=== PATIENT | female | born 1985 | race Caucasian/White ===

== ENCOUNTER 2016-05-09 15:48 | Emergency (ER) ==
[2016-05-09 16:00] VITALS: BP 128/84
[2016-05-09 16:19] LABS: MANUAL DIFF NEEDED? NO
[2016-05-09 16:21] LABS: URINE CULTURE NEEDED? NO; URINE MICRO REVIEW NEEDED? NO; URINE SOURCE CLEAN CATCH
[2016-05-09 16:28] LABS: BASO% 0.4 % (0.0-0.8); EOS# 0.21 X1000 (0.0-0.7); EOS% 2.2 % (0.0-10.0); HEMATOCRIT 38.2 % (37.0-47.0); LYMPH# 2.84 X1000 (1.2-3.4); LYMPH% 29.4 % (20.5-51.1); MCH 30.4 PG (27-31); MCV 89.3 FL (81-99); MONO# 1.03 X1000 (0.11-0.59); MONO% 10.7 % (1.7-9.3); MPV 8.9 FL (7.4-10.4); NEUT% 57.3 % (42.2-75.2); PLT 381 X1000 (130-400); RBC 4.28 XMIL (4.2-5.4)
[2016-05-09 16:32] LABS: BILIRUBIN URINE NEGATIVE (NEGATIVE); BLOOD URINE NEGATIVE (NEGATIVE); COLOR YELLOW; GLUCOSE URINE NEGATIVE (NEGATIVE); LEUKOCYTES URINE NEGATIVE (NEGATIVE); NITRITE URINE NEGATIVE (NEGATIVE); PH URINE 5.5; PROTEIN URINE TRACE mg/dL (NEGATIVE); SP GRAVITY URINE 1.033; TURBIDITY URINE CLEAR (CLEAR); UROBILINOGEN URINE 4 mg/dL (NORMAL)
[2016-05-09 16:33] LABS: UR EPITHELIAL CELLS <10 /HPF (<10); URINE BACTERIA NEGATIVE /HPF; URINE RBC <10 /HPF (<10); URINE WBC <10 /HPF (<10)
[2016-05-09 16:44] LABS: INR 0.94; PROTIME 9.6 Seconds (9.2-11.7); PTT 24.7 Seconds (22.0-36.0)
[2016-05-09 16:51] LABS: AGAP 9; ALBUMIN 3.8 g/dL (3.5-5.0); ALKALINE PHOSPHATASE 35 U/L (32-104); BUN 11 mg/dL (8-22); CALCIUM 8.6 mg/dL (8.8-10.2); CHLORIDE 102 mmol/L (98-107); COSMO 273; GOT 39 U/L (10-30); GPT 76 U/L (10-36); MAGNESIUM 2.1 mg/dL (1.5-2.7); POTASSIUM 3.1 mmol/L (3.5-5.1); SODIUM 137 mmol/L (136-145); TCO2 26 mmol/L (25-35); TOTAL BILIRUBIN 0.16 mg/dL (0.20-1.00); TOTAL PROTEIN 6.7 g/dL (6.3-8.3)
[2016-05-09 16:52] LABS: CK PROFILE 181 U/L (24-173)
[2016-05-09 16:52] LABS: UR AMPHETAMINES QUAL PRESUMPTIVE POSITIVE (NONE DETECT); UR BARBITUATES QUAL NONE DETECTED (NONE DETECT); UR BENZODIAZEPIN QUAL PRESUMPTIVE POSITIVE (NONE DETECT); UR CANNABINOIDS QUAL PRESUMPTIVE POSITIVE (NONE DETECT); UR COCAINE QUAL NONE DETECTED (NONE DETECT); UR METHADONE QUAL NONE DETECTED (NONE DETECT); UR OPIATES QUAL NONE DETECTED (NONE DETECT); UR OXYCODONE QUAL NONE DETECTED (NONE DETECT); UR PCP QUAL NONE DETECTED (NONE DETECT)
[2016-05-09 17:10] LABS: CK INDEX 1.9 (0.0-2.5); CK-MB 3.49 ng/mL (0.0-5.0)
--- NOTE | 2016-05-09 17:10 | PROVIDER DOCUMENTATION ---
HPI-Chest Pain - General Chief Complaint: Chest Pain Stated Complaint: CP Time Seen by Provider: 05/09/16 17:04 Source: patient Allergies/Adverse Reactions: Patient Allergies Allergy/AdvReac Type Severity Reaction Status Date / Time meloxicam [From Mobic] AdvReac NAUSEA/VOMI Verified 05/09/16 17:01 TING tramadol AdvReac NAUSEA/VOMI Verified 05/09/16 17:01 TING Home Medications: Home Medication List Medication Instructions Recorded Confirmed Last Taken Type No Home Medications 05/09/16 05/09/16 Unknown History - History of Present Illness-CP Nature of Presenting Problem: 30 y/o WF c/o CP x 1 day. Pt states that it is in her R chest and radiates to her RUE. States SOB and worse with smoking cigarettes. States that pain got worse after lifting a basket of laundry. Worse with moving RUE. Pain is 10/10 , sharp in nature. Review of Systems - Adult - REVIEW OF SYSTEMS - ADULT Constitutional: reports: no symptoms reported. denies: chills, fever Eyes: reports: no symptoms reported. denies: blurred vision, double vision Ears, Nose, Mouth & Throat: reports: no symptoms reported. denies: ear pain, nose pain Cardiovascular: reports: see HPI, chest pain. denies: palpitations Respiratory: reports: see HPI, shortness of breath. denies: cough Gastrointestinal: reports: no symptoms reported. denies: abdominal pain, nausea , vomiting Genitourinary: reports: no symptoms reported. denies: dysuria, frequency Musculoskeletal: reports: no symptoms reported. denies: joint pain, joint swelling Integumentary: reports: no symptoms reported. denies: nail changes, rash Neurological: reports: no symptoms reported. denies: numbness, paresthesia Psychiatric: reports: no symptoms reported Endocrine: reports: no symptoms reported. denies: cold intolerance, heat intolerance Hematologic/Lymphatic: reports: no symptoms reported. denies: easy bruising, prolonged bleeding Allergic/Immunologic: reports: no symptoms reported All Other Systems: Reviewed and Negative Past History - Adult - PAST MEDICAL HISTORY-ADULT Review of Records: reports: Nursing Assessment Review, Medications Reviewed Major Childhood Illnesses: reports: denies history Cardiovascular: reports: denies history Respiratory: reports: denies history Gastrointestinal: reports: denies history Obstetrical/Gynecological: reports: endometriosis LMP: 04/20/16 Genitourinary: reports: other (endometriosis) Musculoskeletal: reports: chronic pain (back) Neurological: reports: denies history Psychiatric: reports: denies history Endocrine/Immune: reports: denies history Other Conditions: reports: denies history - PRIOR SURGERIES/PROCEDURES Surgical/Procedure History: reports: other (left ovary and fallopian tube removed) - IMMUNIZATION STATUS Childhood Immunizations: See Nurse Assessment Flu Vaccine: See Nurse Assessment - FAMILY HISTORY Family History: reviewed, not pertinent - SOCIAL HISTORY Smoking: cigarettes, greater than 1 pack/day Provider spent 3-5 mins advising pt. on dangers of tobacco.: Discussed manners to quit use, and f/u contacts for add'l counseling. Substance Use: none/never Alcohol Use Frequency: never Physical Exam-General - PHYSICAL EXAM-ADULT Initial Vital Signs Reviewed: Yes - CONSTITUTIONAL General Appearance: alert, mild distress - EYES Eyes: pink conjunctivae - HEAD, EARS, NOSE, MOUTH & THROAT HENMT: normocephalic/atraumatic, moist mucous membranes, dental decay - NECK Neck: supple, normal inspection - RESPIRATORY Respiratory: lungs clear, normal breath sounds, no accessory muscle use, pain on inspiration. negative: chest non-tender (TTP R anterior and axillary aspect of chest wall), crackles, rales, rhonchi, stridor, wheezing - CARDIOVASCULAR Cardiovascular: regular rate, rhythm. negative: bradycardia, tachycardia - GASTROINTESTINAL (ABDOMEN) Abdominal Exam: normal bowel sounds - MUSCULOSKELETAL Back Exam: normal inspection Extremity: normal gait, normal inspection - SKIN Integumentary: normal color, normal turgor, warm/dry - NEUROLOGIC Neurologic: negative: aphasia - PSYCHIATRIC Psych/Mental Status: normal mood/affect, normal thought content, normal thought process, oriented x 3 Progress - PLAN OF CARE/RESULTS Progress/Plan/Lab Results: Laboratory Tests 05/09/16 05/09/16 05/09/16 16:05 16:05 16:05 WBC 9.67 RBC 4.28 Hgb 13.0 Hct 38.2 MCV 89.3 MCH 30.4 MCHC 34.0 RDW Std Deviation 12.9 Plt Count 381 MPV 8.9 Immature Gran % (Auto) 0.0 Neut % (Auto) 57.3 Lymph % (Auto) 29.4 Kidder % (Auto) 10.7 H Eos % (Auto) 2.2 Baso % (Auto) 0.4 Immature Gran # (Auto) 0.00 Neut # (Auto) 5.55 Lymph # (Auto) 2.84 Kidder # (Auto) 1.03 H Eos # (Auto) 0.21 Baso # (Auto) 0.04 PT INR PTT (Actin FS) D-Dimer 0.62 H Sodium 137 Potassium 3.1 L Chloride 102 Carbon Dioxide 26 Anion Gap 9 BUN 11 Creatinine 0.8 Estimated GFR/1.73 m2 > 60 BUN/Creatinine Ratio 14 Glucose 93 Calculated Osmolality 273 Calcium 8.6 L Magnesium 2.1 Total Bilirubin 0.16 L AST 39 H ALT 76 H Alkaline Phosphatase 35 Creatine Kinase 181 H Creatine Kinase Index 1.9 CK-MB (CK-2) 3.49 Troponin T [id number] Pept Total Protein 6.7 Albumin 3.8 Globulin 2.9 Albumin/Globulin Ratio 1.3 Urine Source Urine Color Urine Turbidity Urine pH Ur Specific [place] Urine Protein Ur Glucose (Stick) Ur Ketones (Stick) Urine Blood Urine Nitrite Urine Bilirubin Urobilinogen Dipstick Urine Leukocytes Urine WBC (Auto) Urine RBC (Auto) U Epithel Cells (Auto) Urine Bacteria (Auto) Urine Opiates Screen Ur Oxycodone Screen Ur Methadone, Qual Ur Barbiturates Screen Ur Phencyclidine Scrn Ur Amphetamines Screen U Benzodiazepines Scrn Urine Cocaine Screen U Cannabinoids Screen 05/09/16 05/09/16 05/09/16 16:05 16:05 16:05 WBC RBC Hgb Hct MCV MCH MCHC RDW Std Deviation Plt Count MPV Immature Gran % (Auto) Neut % (Auto) Lymph % (Auto) Kid[place] % (Auto) Eos % (Auto) Baso % (Auto) Immature Gran # (Auto) Neut # (Auto) Lymph # (Auto) Kidder # (Auto) Eos # (Auto) Baso # (Auto) PT 9.6 INR 0.94 PTT (Actin FS) 24.7 D-Dimer Sodium Potassium Chloride Carbon Dioxide Anion Gap BUN Creatinine Estimated GFR/1.73 m2 BUN/Creatinine Ratio Glucose Calculated Osmolality Calcium Magnesium Total Bilirubin AST ALT Alkaline Phosphatase Creatine Kinase Creatine Kinase Index CK-MB (CK-2) Troponin T < 0.010 [id number] Pept 24 Total Protein Albumin Globulin Albumin/Globulin Ratio Urine Source Urine Color Urine Turbidity Urine pH Ur Specific [place] Urine Protein Ur Glucose (Stick) Ur Ketones (Stick) Urine Blood Urine Nitrite Urine Bilirubin Urobilinogen Dipstick Urine Leukocytes Urine WBC (Auto) Urine RBC (Auto) U Epithel Cells (Auto) Urine Bacteria (Auto) Urine Opiates Screen Ur Oxycodone Screen Ur Methadone, Qual Ur Barbiturates Screen Ur Phencyclidine Scrn Ur Amphetamines Screen U Benzodiazepines Scrn Urine Cocaine Screen U Cannabinoids Screen 05/09/16 05/09/16 16:11 16:11 WBC RBC Hgb Hct MCV MCH MCHC RDW Std Deviation Plt Count MPV Immature Gran % (Auto) Neut % (Auto) Lymph % (Auto) Kidder % (Auto) Eos % (Auto) Baso % (Auto) Immature Gran # (Auto) Neut # (Auto) Lymph # (Auto) Kidder # (Auto) Eos # (Auto) Baso # (Auto) PT INR PTT (Actin FS) D-Dimer Sodium Potassium Chloride Carbon Dioxide Anion Gap BUN Creatinine Estimated GFR/1.73 m2 BUN/Creatinine Ratio Glucose Calculated Osmolality Calcium Magnesium Total Bilirubin AST ALT Alkaline Phosphatase Creatine Kinase Creatine Kinase Index CK-MB (CK-2) Troponin T [id number]-Senviupcpzi Pept Total Protein Albumin Globulin Albumin/Globulin Ratio Urine Source CLEAN CATCH Urine Color YELLOW Urine Turbidity CLEAR Urine pH 5.5 Ur Specific [place] 1.033 Urine Protein TRACE A Ur Glucose (Stick) NEGATIVE Ur Ketones (Stick) NEGATIVE Urine Blood NEGATIVE Urine Nitrite NEGATIVE Urine Bilirubin NEGATIVE Urobilinogen Dipstick 4 A Urine Leukocytes NEGATIVE Urine WBC (Auto) <10 Urine RBC (Auto) <10 U Epithel Cells (Auto) <10 Urine Bacteria (Auto) NEGATIVE Urine Opiates Screen NONE DETECTED Ur Oxycodone Screen NONE DETECTED Ur Methadone, Qual NONE DETECTED Ur Barbiturates Screen NONE DETECTED Ur Phencyclidine Scrn NONE DETECTED Ur Amphetamines Screen PRESUMPTIVE POSITIVE A U Benzodiazepines Scrn PRESUMPTIVE POSITIVE A Urine Cocaine Screen NONE DETECTED U Cannabinoids Screen PRESUMPTIVE POSITIVE A Orders Category Date Time Status ED: Urine Bedside ORDERED Care 05/09/16 16:02 Active Saline Loc NOW Care 05/09/16 17:14 Active CHEST-2 VIEWS [RAD] Stat Exams 05/09/16 16:01 Completed CBC WITH ELECTRONIC DIFF [HEME] Stat Lab 05/09/16 16:05 Completed CK PROFILE [SP CHEM] Stat Lab 05/09/16 16:05 Completed COMPREHENSIVE METABOLIC PANEL [CHEM] Stat Lab 05/09/16 16:05 Completed D-DIMER [CHEM] Stat Lab 05/09/16 16:05 Completed MAGNESIUM [CHEM] Stat Lab 05/09/16 16:05 Completed PRO B-NATRIURETIC PEPTIDE Stat Lab 05/09/16 16:05 Completed PROTIME WITH INR [COAG] Stat Lab 05/09/16 16:05 Completed PTT [COAG] Stat Lab 05/09/16 16:05 Completed TROPONIN T Stat Lab 05/09/16 16:05 Completed UDS [URINE DRUG SCREEN] Stat Lab 05/09/16 16:11 Completed URINALYSIS W/POSS RFLX CULT [URINALYSIS] Stat Lab 05/09/16 16:11 Completed 0.9% Sodium Chloride Inj [Ns] 1,000 ml Med 05/09/16 17:14 Discontinued IV 999 mls/hr Vecuronium [Norcuron] Med 05/09/16 17:27 Discontinued 10 mg .ROUTE .STK-MED ONE Water, Sterile Inj [Sterile Water Inj] Med 05/09/16 17:28 Discontinued 10 ml .ROUTE .STK-MED ONE EKG [EKG] Stat Ther 05/09/16 16:01 Draft Vital Signs Temp Pulse Resp BP Pulse Ox 05/09/16 15:56 97.3 F L 98 H 18 128/84 100 meloxicam [From Mobic] Adverse Reaction (Verified 05/09/16 17:01) NAUSEA/VOMITING tramadol Adverse Reaction (Verified 05/09/16 17:01) NAUSEA/VOMITING No Home Medications 05/09/16 NICOTINE DEPENDENCE, CIGARETTES, UNCOMPLICATED (05/09/16) OTHER CHRONIC PAIN (05/09/16) DORSALGIA, UNSPECIFIED (05/09/16) PAIN IN RIGHT ARM (05/09/16) SHORTNESS OF BREATH (05/09/16) OTHER CHEST PAIN (05/09/16) ABNORMAL ELECTROCARDIOGRAM [ECG] [EKG] (05/09/16) TOBACCO ABUSE COUNSELING (05/09/16) I&O 05/10/16 05/11/16 05/12/16 06:59 06:59 06:59 Output Total 30 Balance -30 Laboratory 05/09/16 05/09/16 05/09/16 16:11 16:11 16:05 WBC RBC Hgb Hct MCV MCH MCHC RDW Std Deviation Plt Count MPV Immature Gran % (Auto) Neut % (Auto) Lymph % (Auto) Kidder % (Auto) Eos % (Auto) Baso % (Auto) Immature Gran # (Auto) Neut # (Auto) Lymph # (Auto) Kidder # (Auto) Eos # (Auto) Baso # (Auto) PT INR PTT (Actin FS) D-Dimer Sodium Potassium Chloride Carbon Dioxide Anion Gap BUN Creatinine Estimated GFR/1.73 m2 BUN/Creatinine Ratio Glucose Calculated Osmolality Calcium Magnesium Total Bilirubin AST ALT Alkaline Phosphatase Creatine Kinase Creatine Kinase Index CK-MB (CK-2) Troponin T < 0.010 Rds-Q-Utkhbtsnxzd Pept Total Protein Albumin Globulin Albumin/Globulin Ratio Urine Source CLEAN CATCH Urine Color YELLOW Urine Turbidity CLEAR Urine pH 5.5 Ur Specific [place] 1.033 Urine Protein TRACE A Ur Glucose (Stick) NEGATIVE Ur Ketones (Stick) NEGATIVE Urine Blood NEGATIVE Urine Nitrite NEGATIVE Urine Bilirubin NEGATIVE Urobilinogen Dipstick 4 A Urine Leukocytes NEGATIVE Urine WBC (Auto) <10 Urine RBC (Auto) <10 U Epithel Cells (Auto) <10 Urine Bacteria (Auto) NEGATIVE Urine Opiates Screen NONE DETECTED Ur Oxycodone Screen NONE DETECTED Ur Methadone, Qual NONE DETECTED Ur Barbiturates Screen NONE DETECTED Ur Phencyclidine Scrn NONE DETECTED Ur Amphetamines Screen PRESUMPTIVE POSITIVE A U Benzodiazepines Scrn PRESUMPTIVE POSITIVE A Urine Cocaine Screen NONE DETECTED U Cannabinoids Screen PRESUMPTIVE POSITIVE A 05/09/16 05/09/16 05/09/16 16:05 16:05 16:05 WBC RBC Hgb Hct MCV MCH MCHC RDW Std Deviation Plt Count MPV Immature Gran % (Auto) Neut % (Auto) Lymph % (Auto) Kidder % (Auto) Eos % (Auto) Baso % (Auto) Immature Gran # (Auto) Neut # (Auto) Lymph # (Auto) [place] # (Auto) Eos # (Auto) Baso # (Auto) PT 9.6 INR 0.94 PTT (Actin FS) 24.7 D-Dimer 0.62 H Sodium Potassium Chloride Carbon Dioxide Anion Gap BUN Creatinine Estimated GFR/1.73 m2 BUN/Creatinine Ratio Glucose Calculated Osmolality Calcium Magnesium Total Bilirubin AST ALT Alkaline Phosphatase Creatine Kinase Creatine Kinase Index CK-MB (CK-2) Troponin T [id number]-Tafoxwgkynw Pept 24 Total Protein Albumin Globulin Albumin/Globulin Ratio Urine Source Urine Color Urine Turbidity Urine pH Ur Specific [place] Urine Protein Ur Glucose (Stick) Ur Ketones (Stick) Urine Blood Urine Nitrite Urine Bilirubin Urobilinogen Dipstick Urine Leukocytes Urine WBC (Auto) Urine RBC (Auto) U Epithel Cells (Auto) Urine Bacteria (Auto) Urine Opiates Screen Ur Oxycodone Screen Ur Methadone, Qual Ur Barbiturates Screen Ur Phencyclidine Scrn Ur Amphetamines Screen U Benzodiazepines Scrn Urine Cocaine Screen U Cannabinoids Screen 05/09/16 05/09/16 16:05 16:05 WBC 9.67 RBC 4.28 Hgb 13.0 Hct 38.2 MCV 89.3 MCH 30.4 MCHC 34.0 RDW Std Deviation 12.9 Plt Count 381 MPV 8.9 Immature Gran % (Auto) 0.0 Neut % (Auto) 57.3 Lymph % (Auto) 29.4 Kidder % (Auto) 10.7 H Eos % (Auto) 2.2 Baso % (Auto) 0.4 Immature Gran # (Auto) 0.00 Neut # (Auto) 5.55 Lymph # (Auto) 2.84 Kidder # (Auto) 1.03 H Eos # (Auto) 0.21 Baso # (Auto) 0.04 PT INR PTT (Actin FS) D-Dimer Sodium 137 Potassium 3.1 L Chloride 102 Carbon Dioxide 26 Anion Gap 9 BUN 11 Creatinine 0.8 Estimated GFR/1.73 m2 > 60 BUN/Creatinine Ratio 14 Glucose 93 Calculated Osmolality 273 Calcium 8.6 L Magnesium 2.1 Total Bilirubin 0.16 L AST 39 H ALT 76 H Alkaline Phosphatase 35 Creatine Kinase 181 H Creatine Kinase Index 1.9 CK-MB (CK-2) 3.49 Troponin T Ddf-P-Brewwzuactt Pept Total Protein 6.7 Albumin 3.8 Globulin 2.9 Albumin/Globulin Ratio 1.3 Urine Source Urine Color Urine Turbidity Urine pH Ur Specific [place] Urine Protein Ur Glucose (Stick) Ur Ketones (Stick) Urine Blood Urine Nitrite Urine Bilirubin Urobilinogen Dipstick Urine Leukocytes Urine WBC (Auto) Urine RBC (Auto) U Epithel Cells (Auto) Urine Bacteria (Auto) Urine Opiates Screen Ur Oxycodone Screen Ur Methadone, Qual Ur Barbiturates Screen Ur Phencyclidine Scrn Ur Amphetamines Screen U Benzodiazepines Scrn Urine Cocaine Screen U Cannabinoids Screen Pt initially seen in traige room 2 and evaluated. Pt eloped prior to full workup. Departure - Departure Time of Disposition Order: 19:20 DIAGNOSIS: Chest pain Qualifiers: Chest pain type: unspecified Qualified Code(s): R07.9 - Chest pain, unspecified Disposition: [place] [id number] Certified Medical Emergency: Emergent Condition: Stable Referrals: None,PCP [Primary Care Provider] - Attestation - Physician/ POLY Attestation Patient care was provided by Advanced Practice Provider:: Yes Advanced Practice Provider:: Lorena Velarde Advanced Practice Provider documentation review:: The Mid-level provider documentation, treatment plan and medical decision making was reviewed by the physician who agrees with all treatment and medical decision making by the MLP.
[2016-05-09] MEDS ORDERED: NS 1,000 ML IV ONE (17:14)
[2016-05-09] MEDS ORDERED: NORCURON ONE (17:27)
[2016-05-09] MEDS ORDERED: STERILE WATER INJ. ONE (17:28)
--- NOTE | 2016-05-09 18:12 | Diag Imaging Result Document ---
PROCEDURE NAME: CHEST-2 VIEWS - 05/09/2016 FRONTAL AND LATERAL CHEST, 2 VIEWS: The lungs are well expanded. The heart is not enlarged. The vessels are not distended. No pneumonia. No pleural effusions. No free air beneath the diaphragm. There is moderate scoliosis. IMPRESSION: No acute abnormality.
--- NOTE | 2016-05-09 18:17 | ED EKG INTERP ---
EKG Interpretation - EKG Time of EKG reading by physician:: 16:02 EKG Read and Signed by:: Bandar Power EKG Interpretation (*Must complete 3 of following elements*): Abnormal ( Possible L atrial enlargement) Rate: 96 Rhythm: NSR Attestation - Scribe Verification/Attestation Scribe:: Carlton Whitt Acting as Scribe for:: Hari Kohli Scribe documention review:: This chart was documented by a scribe and accurately reflects the service the provider performed and the decisions made by the provider.
--- NOTE | 2016-05-10 09:21 | EKG Report ---
Test Performed on : 05/09/2016 4:02:47 PM Test Reason : Chest Pain Blood Pressure : / mmHG Vent. Rate : 096 BPM Atrial Rate : 096 BPM P-R Int : 150 ms QRS Dur : 076 ms QT Int : 346 ms P-R-T Axes : 074 061 041 degrees QTc Int : 437 ms Normal sinus rhythm. Possible Left atrial enlargement Borderline ECG No previous ECGs available Unconfirmed Result
== END 2016-05-09 19:20 | disposition left against medical advice (07) ==
LOC: ED 15:48
DX: R07.89 Other chest pain (principal); M79.601 Pain in right arm; R06.02 Shortness of breath; R94.31 Abnormal electrocardiogram [ECG] [EKG]; G89.29 Other chronic pain; M54.9 Dorsalgia, unspecified; F17.210 Nicotine dependence, cigarettes, uncomplicated; Z71.6 Tobacco abuse counseling
CPT/HCPCS: 36415; 71020; 80053; 81001; 81025; 82550; 82553; 83735; 83880; 84484; 85025; 85379; 85610; 85730; 93005; G0480; 80324; 80345; 80346; 80349; 80353; 80358; 80361; 80365; 83992